=== PATIENT | female | born 1980 | race Native Hawaiian/Other Pacific Islander ===

== ENCOUNTER 2016-07-16 02:24 | Emergency (ER) | payer OTHER ==
[~2016-07-16] VITALS: Ht 157.5 cm; Wt 65.8 kg
[2016-07-16 02:42] VITALS: TEMP 97.6
[2016-07-16 04:20] VITALS: BP 112/64
== END 2016-07-16 04:21 | disposition home or self-care (01) ==
LOC: ED 02:24
DX: N20.1 Calculus of ureter (principal); N23 Unspecified renal colic
CPT/HCPCS: 81000; 96372; 99283; J1885

== ENCOUNTER 2017-08-17 17:28 | Emergency (ER) | payer OTHER ==
[~2017-08-17] VITALS: Ht 167.6 cm; Wt 74.4 kg
[2017-08-17 18:15] LABS: PLATELET COUNT 343 K/uL (152-353)
[2017-08-17 19:47] VITALS: BP 118/74; TEMP 98.3
== END 2017-08-17 19:49 | disposition home or self-care (01) ==
LOC: ED 17:28
DX: T19.2XXA Foreign body in vulva and vagina, initial encounter (principal); R10.84 Generalized abdominal pain
CPT/HCPCS: 85027; 99284; J3490

== ENCOUNTER 2020-03-02 22:26 | Emergency (ER) | payer OTHER ==
[~2020-03-02] VITALS: Ht 157.5 cm; Wt 73.5 kg
[2020-03-02 23:41] VITALS: BP 114/45; TEMP 98.8
== END 2020-03-02 23:41 | disposition home or self-care (01) ==
LOC: ED 22:33
DX: Z04.89 Encounter for examination and observation for other specified reasons (principal)
CPT/HCPCS: 81000; 99284